=== PATIENT | female | born 1980 | race Caucasian/White ===

== ENCOUNTER → 2016-11-05 | Outpatient (CLI) | payer OTHER ==
--- NOTE | 2016-11-05 13:36 | DI ---
US PELVIC-TRANSVAGINAL,11/05/2016 7:54 AM: Clinical History: Pre-and menstrual disorder disorder. Previous Exam: March 25, 2012 Findings: Multiple transvaginal grayscale and color Doppler sonographic images are obtained through the pelvis, and demonstrate a normal-appearing uterus measuring 7.9 x 4.0 x 4.6 cm with an endometrial stripe me asuring 8 mm. There is a small 9 mm fibroid within the posterior myometrium. The right ovary measures 4.8 x 2.5 x 4.9 cm with normal Doppler flow and a few maturing follicles. The left ovary measures 2.9 x 2.2 x 2.6 cm with normal Doppler flow. There is a trace amount of free fluid within the deep pelvis. Impression: 1. Trace amount of fluid within the deep pelvis. 2. 9 mm myometrial fibroid within the posterior myometrium.
== END ==
LOC: US 07:51
PROVIDERS: ATTEND Nurse Practitioner Family
DX: F32.81 Premenstrual dysphoric disorder (principal); D25.9 Leiomyoma of uterus, unspecified
CPT/HCPCS: 76830

== ENCOUNTER 2018-03-09 14:17 | Inpatient (IN) ==
[2018-03-09] MEDS ORDERED: Lidocaine 1% 10 MG/ML - 20 ML VIAL SUBCUT PRN (18:19)
[2018-03-09] MEDS ORDERED: FAMOTIDINE 20 MG/2 ML VIAL IVP PRN ×2 (18:19)
[2018-03-09] MEDS ORDERED: OXYTOCIN 10 UNIT/1 ML IM PRN (18:19)
[2018-03-09] MEDS ORDERED: CefOXitin Inj 2 GM in Sodium Chloride 0.9% 100 ML IV PRN (18:19)
[2018-03-09] MEDS ORDERED: LIDOCAINE HCL 2 % 10 ML JELLY URO-JECT TOPICAL PRN (18:19)
[2018-03-09] MEDS ORDERED: CITRIC ACID/SODIUM CITRATE 30 ML CUP PO PRN (18:19)
[2018-03-09] MEDS ORDERED: LIDOCAINE W/ SODIUM BICARB 0.5 ML SYR SUBD PRN (18:19)
[2018-03-09] MEDS ORDERED: ePHEDrine Inj 50 MG/ML AMP IVP PRN (18:19)
[2018-03-09] MEDS ORDERED: Metoclopramide Inj 10 MG/2 ML VIAL IV PRN (18:19)
[2018-03-09] MEDS ORDERED: diphenhydrAMINE 50 MG/1 ML VIAL IVP PRN (18:19)
[2018-03-09] MEDS ORDERED: Naloxone Inj 0.01 MG in Sodium Chloride 0.9% vial 1 ML IVP PRN (18:19)
[2018-03-09] MEDS ORDERED: ONDANSETRON 4 MG/2 ML VIAL IVP PRN (18:19)
[2018-03-09] MEDS ORDERED: NALOXONE 0.4 MG/1 ML VIAL IVP PRN (18:19)
[2018-03-09] MEDS ORDERED: Carboprost Inj 250 MCG/ML AMP IM PRN (18:19)
[2018-03-09] MEDS ORDERED: CALCIUM CARBONATE 500 MG (TUMS) CHEWABLE TABLET PO PRN (18:19)
[2018-03-09] MEDS ORDERED: Phenylephrine Inj 50 MCG in Sodium Chloride 0.9% vial 0.5 ML IVP PRN (18:19)
[2018-03-09] MEDS ORDERED: Nalbuphine Inj 20 MG/ML Ampule IVP PRN (18:19)
[2018-03-09] MEDS ORDERED: fentaNYL Inj 100 MCG/2 ML VIAL IV PRN (18:19)
[2018-03-09] MEDS ORDERED: MISOPROSTOL 200 MCG TABLET RECTAL PRN (18:19)
[2018-03-09] MEDS ORDERED: METHYLERGONOVINE MALEATE 0.2 MG/1 ML VIAL IM PRN (18:19)
[2018-03-09] MEDS ORDERED: TERBUTALINE SULFATE 1 MG/1 ML SDV SUBCUT PRN (18:19)
[2018-03-09] MEDS ORDERED: Oxytocin 20 Units + LR 20 UNIT/1,000 ML BAG IV SCH ×3 (18:30→20:45)
[2018-03-09] MEDS ORDERED: Aztreonam Inj 2 GM in Sodium Chloride 0.9% 100 ML IV PRN (18:38)
[2018-03-09] MEDS ORDERED: Clindamycin 900mg (Premix) 900 MG/50 ML BAG IV PRN (18:39)
[2018-03-09 19:04] LABS: Hematocrit [HCT] 39.5 % (37.0-47.0); Hemoglobin [HGB] 13.2 g/dL (12.0-16.0); MEAN CORPUSCULAR HEMOGLOBIN 27.6 PG (27-31); MEAN CORPUSCULAR HGB CONC 33.4 g/dL (33-37); MEAN CORPUSCULAR VOLUME 82.6 FL (81-99); MEAN PLATELET VOLUME 11.4 FL (7.4-12.2); RED BLOOD COUNT 4.78 10^6/uL (4.20-5.40)
[2018-03-09] MEDS: Lactated Ringers-OB Dept 1,000 ML PRIMARY IV SCH (19:15)
--- NOTE | 2018-03-09 20:15 | OB.PROGRES ---
Interval History: The patient is a 37-year-old at 38-6/7 weeks today who presents for cervical ripening and induction of labor secondary to advanced maternal age. Please see the initial history when I first saw her at the beginning of her . This has been significant for edema of and a very painful hemorrhoid but otherwise GBS negative and 24 urine for total protein less than 300 mg. Normal blood pressures. Normal Glucola. The patient has advanced maternal age and therefore the patient has undergone antepartum testing for several weeks and the heart tones have been reactive. The patient states that she has had intermittent contractions for the past week. In labor and delivery this evening the patient was noted to have irregular contractions and some were uncomfortable with 3 out of 10 pain. No leakage of fluid. No bleeding. Positive movement. The patient is a 37-year-old at 8-6/7 weeks today with an RUFINO of 2017 by LMP and by early ultrasound. Patient presents today with history of infertility and saw an KAYLAH and was prescribed letrozole and hCG and conceived the first attempt. The patient last had an ultrasound on 07/25/2017 which showed a 6-2/7 weeks IUP with cardiac activity. The patient presents today for a new OB appointment to confirm . The patient continues to have nausea but no emesis. The patient has not had bleeding. The patient does have some fatigue. The patient is taking micronized progesterone twice a day and taking a baby aspirin-81 mg-daily. The patient does have occasional reflux-GERD. Past medical history significant for sinusitis, GERD, seasonal allergies Past surgical history significant for wisdom teeth extraction, shoulder surgery , and a D&C in 2009 for a miscarriage. Missed AB. The patient is allergic to penicillin and to bees. BUSINESS DEVELOPMENT DIRECTOR history with menarche age 13. No abnormal Pap smear history no STI history. OB history with 1 miscarriage with a pole visualized but no cardiac activity around 6+ weeks in 2009. Patient did have a D&C which was uncomplicated.The patient also has a history of oligomenorrhea and dysmenorrhea. Past OB history as above. Objective - Cervical Exam Cervical Exam: 2/60/-2 cephalic and soft. Membranes swept gently. No blood on my exam glove with sweeping membranes. [place]: Irregular contractions but more than 3 in 10 minutes usually. Heart Rate Interpretation Category: Category I - Labs CBC and BMP: 03/09/18 18:19 - Vital Signs Last Taken Vital Signs: Vital Signs - Last Taken Temperature 97.9 F 03/09/18 18:21 Pulse Rate 86 03/09/18 19:00 Respiratory Rate 20 03/09/18 18:21 Blood Pressure 127/87 03/09/18 19:25 Pulse Ox 97 03/09/18 18:21 - Additional Details Additional Details: Lungs clear to auscultation Heart regular rate and rhythm Abdomen is gravid, soft and nontender. No guarding or rebound. Cephalic by Ronald's Assessment and Plan - Assessment / Plan Additional Assessment/Plan Details: Assessment: IUP 38-6/7 weeks with advanced maternal age. Patient admitted this evening with irregular contractions that are often more than 3 in 10 minutes. Positive movement. Category 1 heart rate tracing. GBS negative. Plan: Secondary to the latent labor and irregular contractions but often more than 3 in 10 minutes, I cannot use Cytotec for cervical ripening. Low-dose Pitocin will be used. The patient and I did discuss epidural and the patient is open to it but may not have one the pending upon how she does. We did discuss that not all labors and with a vaginal delivery. About 20-30% of patients to have a section. The risks, benefits, alternatives and indication of a vaginal delivery and were discussed with the patient. Indications for a including arrest of dilation, arrest of descent, nonreassuring status and other reasons such as heavy bleeding may necessitate a section. Patient expressed understanding. Will proceed with cervical ripening.
[2018-03-10] MEDS: Lactated Ringers-OB Dept 1,000 ML PRIMARY IV SCH ×2 (02:59→11:37)
--- NOTE | 2018-03-10 08:31 | OB.PROGRES ---
Date of Service: 03/10/18 Interval History: The patient states that she did contract overnight and could feel them although they were not very painful. She did not sleep very much at all. She did not want to take the Ambien. This morning, the patient is doing okay. She has noticed a little bit of dark blood vaginally. No gush of fluid. Baby is moving well. She did take a shower this morning and she is ready for the cervical ripening to continue. Objective - Cervical Exam Cervical Exam: 260/-2 cephalic. There is some dark blood on my gloved digit. Membranes were swept gently. No bright red blood. [place]: Irregular contractions but sometimes more than 3 in 10 minutes. The patient's contractions had decreased to about every 8 minutes but then the patient wanted to shower before Cytotec administration and her contractions increased. Heart Rate Interpretation Category: Category I - Labs CBC and BMP: 03/09/18 18:19 - Vital Signs Last Taken Vital Signs: Vital Signs - Last Taken Temperature 98.3 F 03/10/18 06:05 Pulse Rate 88 03/10/18 06:05 Respiratory Rate 18 03/10/18 06:05 Blood Pressure 131/85 03/10/18 06:05 Pulse Ox 96 03/10/18 06:42 Assessment and Plan - Assessment / Plan Additional Assessment/Plan Details: Assessment: IUP 39 weeks with advanced maternal age. Patient admitted for cervical ripening and induction of labor The patient received low-dose Pitocin overnight-1 milliunit and the contractions were every 2 minutes initially but then this morning the contractions started to space out. I talked with the nurse at 0537 hours this morning and the Pitocin was stopped. At 0653 hrs., the contractions were spaced out to every 8 minutes and Cytotec 25 g per vagina was requested by me. The patient wanted to take a shower prior to the Cytotec administration and while the patient was showering the patient's contractions increased in frequency. Currently, they appear to be decreasing in frequency. The patient' s cervix is unchanged from last evening's exam. Plan: Currently, we will evaluate if the contractions decreased in frequency and become more regular. If this occurs, Cytotec 25 g will be administered for cervical ripening. If the contractions do not decrease in frequency then I will add Pitocin and increase it to get regular contractions and use the Pitocin as a cervical ripening agent. The patient's cervix is soft and hopefully will ripen. I encouraged the patient to try to get some sleep this morning. The patient expressed understanding with the plan.
[2018-03-10] MEDS: Misoprostol Tab 100 MCG TAB VAGINAL ONE (09:09)
[2018-03-10] MEDS: Oxytocin 20 Units + LR 20 UNIT/1,000 ML BAG IV SCH (17:01)
--- NOTE | 2018-03-10 17:49 | OB.PROGRES ---
Interval History: The patient has walked this afternoon and I have spoken with her several times. The patient is tired and would like to rest. Objective - Cervical Exam Cervical Exam: 60/-2 cephalic. Nurse's exam [place]: Currently irregular contraction. Pitocin was started at 2 milliunits for cervical ripening Heart Rate Interpretation Category: Category I - Labs CBC and BMP: 03/09/18 18:19 - Vital Signs Last Taken Vital Signs: Vital Signs - Last Taken Temperature 98.2 F 03/10/18 16:43 Pulse Rate 80 03/10/18 17:31 Respiratory Rate 19 03/10/18 16:43 Blood Pressure 107/70 03/10/18 17:31 Pulse Ox 98 03/10/18 17:05 Assessment and Plan - Assessment / Plan Additional Assessment/Plan Details: Assessment: IUP 39 weeks with advanced maternal age. Patient had 1 dose of Cytotec and did contract and did ripen her cervix somewhat. Currently, low-dose Pitocin. [place]: The plan is to continue low-dose Pitocin until 2000 hrs. Stop the Pitocin. If the patient's contractions decreased then the patient will be a small meal then rest and then at 4:00 in the morning the patient will either have Pitocin started again or a Cytotec for cervical ripening. This will depend upon the cervix exam. I discussed this plan with the patient and the nurses and the patient states understanding. She would like to sleep.
[2018-03-10] MEDS ORDERED: HYDROXYZINE PAMOATE 25 MG CAPSULE PO ONE (20:27)
--- NOTE | 2018-03-10 20:57 | OB.PROGRES ---
Interval History: The patient states she is doing well although she is quite tired. She would like to take a break and eats something and then sleep some. Baby is moving. No gush of fluid. No bleeding. Objective - Cervical Exam Cervical Exam: just 3cm/70/-2 cephalic. Membranes gently swept. Some dark blood on my glove. The internal cervical OS still has a tight ring. [place]: Contractions every 2-3 minutes on 4 milliunits of Pitocin. Heart Rate Interpretation Category: Category I - Labs CBC and BMP: 03/09/18 18:19 - Vital Signs Last Taken Vital Signs: Vital Signs - Last Taken Temperature 98.2 F 03/10/18 16:43 Pulse Rate 89 03/10/18 19:30 Respiratory Rate 18 03/10/18 19:30 Blood Pressure 120/80 03/10/18 19:30 Pulse Ox 98 03/10/18 19:30 Assessment and Plan - Assessment / Plan Additional Assessment/Plan Details: Assessment: IUP 39 weeks with advanced maternal age. Patient admitted for cervical ripening and induction of labor. There has been a slight amount of cervical ripening with 1 dose of Cytotec and then Pitocin. Category 1 heart rate tracing. Plan: The patient and I discussed stopping the Pitocin and if the contractions decreased in frequency then the patient could eat a light meal and then we could have her sleep. I have prescribed hydroxyzine or Atarax 25 mg by mouth to take to help her sleep. We did discuss that this may cause grogginess. If the contractions did decrease in frequency and the patient's IV to be hep- locked and we can take her off the monitor for a couple hours to allow her to sleep since the baby is had a category 1 heart rate tracing and blood pressures are normal. If the patient's contractions decreased in frequency to less then 3 in 10 minutes regularly then I would have the patient go back on the monitor at about 0330 hrs. in the morning and then Cytotec 25 g would be administered at 0400 hrs. for cervical ripening. If the patient's contractions are 3 contractions in 10 minutes then I would add some Pitocin to augment the contractions for continued cervical ripening. We then spoke about checking the patient's cervix tomorrow morning to determine cervical change and possible AROM with IUPC some time in the morning with continued Pitocin. Another option would be to continue without AROM to determine how she does. At the patient's cervix does not change significantly, we also spoke about discharging the patient home if everything looks well and have the patient return in several days for induction of labor. It would depend upon the patient 's wishes. If the patient's contractions continue without the Pitocin tonight, and they are regular, I would not suggest that the patient ate but we could still have her sleep with the hydroxyzine. The patient expressed understanding with the above plan. Currently, the patient will have the Pitocin stopped. If the contractions decreased in frequency and the patient will eat a small meal and then soak in the tub and then take a short walk and then go to bed. Short external monitoring and then IV hep-locked and monitor will be held for a couple hours so that the patient can sleep. If the patient's contractions are not frequent in the morning then the patient will have Cytotec 25 g per vagina. If the contractions are more frequent, Pitocin augmentation.
[2018-03-10] MEDS: BUTORPHANOL TARTRATE 2 MG/1 ML VIAL IVP PRN ×2 (23:00→23:15)
[2018-03-11] MEDS: BUTORPHANOL TARTRATE 2 MG/1 ML VIAL IVP PRN (01:56)
[2018-03-11] MEDS: Lactated Ringers-OB Dept 1,000 ML PRIMARY IV SCH ×3 (02:17→11:49)
[2018-03-11] MEDS ORDERED: Misoprostol Tab 100 MCG TAB VAGINAL ONE (04:00)
[2018-03-11] MEDS: Misoprostol Tab 100 MCG TAB VAGINAL ONE (04:22)
[2018-03-11] MEDS ORDERED: Misoprostol Tab 100 MCG TAB ONE (04:23)
--- NOTE | 2018-03-11 08:43 | OB.PROGRES ---
Interval History: The patient states that she slept last night. She is still little groggy from the hydroxyzine or Atarax. She did get a little last night too. Objective - Cervical Exam Cervical Exam: Tight 3 cm/75/-2 and I could palpate a slight bulging bag with a contraction. Membranes swept gently. [place]: Agent did receive Cytotec at 0415 hrs. as morning. The patient is kylie every 3-4 minutes. Heart Rate Interpretation Category: Category I - Labs CBC and BMP: 03/09/18 18:19 - Vital Signs Last Taken Vital Signs: Vital Signs - Last Taken Temperature 97.9 F 03/11/18 08:10 Pulse Rate 70 03/11/18 08:10 Respiratory Rate 18 03/11/18 06:00 Blood Pressure 121/84 03/11/18 08:10 Pulse Ox 100 03/11/18 08:10 Assessment and Plan - Assessment / Plan Additional Assessment/Plan Details: Assessment: 39-1 week doing well Slight cervical change -ripening Patient did receive Cytotec 25 g as morning of 0415 hrs. GBS negative Plan: Pitocin started at 1 milliunit Consider AROM later this morning. Patient and I will discuss this more.
[2018-03-11] MEDS: Oxytocin 20 Units + LR 20 UNIT/1,000 ML BAG IV SCH (08:50)
[2018-03-11] MEDS ORDERED: Fent/Bupiv 2mcg/0.0625% Epid 250 ML ONE (11:44)
--- NOTE | 2018-03-11 12:14 | OB.PROGRES ---
Interval History: Patient requested an epidural secondary to pain. The epidural has helped. Objective - Cervical Exam Cervical Exam: 375/-2. AROM with clear fluid. IUPC attempted to be placed the patient got a little lightheaded after AROM and her blood pressure was 95/ 60. Patient was sat up. IUPC could not be easily placed with the patient sitting. It kept coiling up. External monitor will be used an IUPC will be attempted again. [place]: Contractions every 3 minutes. This was on 5 milliunits of Pitocin. Once AROM, the Pitocin was decreased at 3 milliunits. Heart Rate Interpretation Category: Category I - Labs CBC and BMP: 03/09/18 18:19 - Vital Signs Last Taken Vital Signs: Vital Signs - Last Taken Temperature 97.9 F 03/11/18 08:10 Pulse Rate 94 03/11/18 09:37 Respiratory Rate 18 03/11/18 06:00 Blood Pressure 124/104 03/11/18 09:37 Pulse Ox 99 03/11/18 08:52 Assessment and Plan - Assessment / Plan Additional Assessment/Plan Details: IUP 39-06/01 with AROM with clear fluid. Pitocin was decreased at 3 milliunits. I will attempt to place another IUPC after the patient starts feeling better. The patient is currently sitting and feeling better. Blood pressures will be observed. The patient may need ephedrine but currently position change may help her blood pressure. The patient states she is feeling somewhat better now. With IUPC placement there was no evidence of uterine perforation. I did not force the IUPC. I believe that the patient's lightheadedness is secondary to the epidural and then AROM and feeling the warm fluid drain.
--- NOTE | 2018-03-11 12:24 | CRNA.PROCE ---
Central Neuraxis Block Placemt - - Safety Measures: Time Out Taken, Site Verified - - Type of Block: Epidural Reason for Block: Analgesia Moniters Used During Block: SPO2, NIBP Positioning: Sitting Skin Prep Used: Betadine Draped: Yes Skin Infiltration - Enter Amount Used in Comment Field: 1% Xylocaine (mL): Yes ( wheal) Introducer User: 18 Gauge Hustead (Banner PRACHI to saline first pass L3-4) Local Anesthetic - Enter Amount Used in Comment Field: 5.0 % Xylocaine with Dextrose (ml): Yes (5ml test dose neg) Number of Centimeters Catheter Threaded: 4 Bioclusive Dressing Applied: Yes Anesthesia Time - Other Weight: 94.007 kg Height: 5 ft 8 in Body Mass Index (BMI): 31.5
--- NOTE | 2018-03-11 12:27 | CRNA.PROGR ---
Anesthesia Time - Procedure/Recovery Time Start Date: 03/11/18 Anesthesia : Time In: 11:15 - Other Weight: 94.007 kg Height: 5 ft 8 in Body Mass Index (BMI): 31.5 Physical Status: P2 Obstetrics: Planned vaginal delivery w/ neuraxial labor anesthesia/analog
[2018-03-11] MEDS ORDERED: fentaNYL 2 MCG/BUPIVACAINE 0.0625%/NS 0.9% 250 ML BAG EPIDURAL SCH (12:30)
--- NOTE | 2018-03-11 13:38 | OB.PROGRES ---
Interval History: The patient feels much better now. No nausea. Epidural working well. Patient can feel the pressure of a contraction that only minimal pain if that. Objective - Cervical Exam Cervical Exam: 5/c/-1 cephalic. IUPC placed without issue. Placed at about 5: 00 on a clock face. Easily introduced. Heart Rate Interpretation Category: Category I - Labs CBC and BMP: 03/09/18 18:19 - Vital Signs Last Taken Vital Signs: Vital Signs - Last Taken Temperature 97.9 F 03/11/18 08:10 Pulse Rate 94 03/11/18 09:37 Respiratory Rate 18 03/11/18 06:00 Blood Pressure 124/104 03/11/18 09:37 Pulse Ox 100 03/11/18 11:00 Assessment and Plan - Assessment / Plan Additional Assessment/Plan Details: Assessment: IUP 39-1/7 week with induction of labor for dance maternal age. Patient doing well. Patient's cervix didn't change. IUPC was placed secondary to being able to monitor [place] units with the Pitocin. Currently Pitocin is at 5 milliunits. Plan continue to observe closely. 200 [place] units is my goal. Observe for cervical change.
[2018-03-11] MEDS ORDERED: LIDOCAINE W/ SODIUM BICARB 0.5 ML SYR ONE (16:55)
--- NOTE | 2018-03-11 17:05 | OB.PROGRES ---
Interval History: Patient has been comfortable with her epidural. Her IV stopped working and the nurses are trying to find the vein for an IV site. This has been hurting the patient but her labor pain is controlled by the epidural. Objective - Cervical Exam Cervical Exam: Small anterior lip which appears to be easily reducible/c/0 Heart Rate Interpretation Category: Category I - Labs CBC and BMP: 03/09/18 18:19 - Vital Signs Last Taken Vital Signs: Vital Signs - Last Taken Temperature 97.4 F 03/11/18 14:30 Pulse Rate 79 03/11/18 16:00 Respiratory Rate 18 03/11/18 16:00 Blood Pressure 117/69 03/11/18 16:00 Pulse Ox 98 03/11/18 16:00 Assessment and Plan - Assessment / Plan Additional Assessment/Plan Details: Assessment: IUP 39 and one sevenths weeks with the cervix essentially complete since the anterior lip produces. The nurses did find an IV site and anesthesia is looking for 1 more currently. Plan: The patient will start the second stage of labor with pushing as soon as her IV is in. The anterior lip will be attempted to be reduced with pushing. Continue to observe closely
--- NOTE | 2018-03-11 18:36 | OB.PROGRES ---
Interval History: The patient has been pushing since about 1720 hrs. The patient is comfortable with her epidural. Objective - Cervical Exam Cervical Exam: c/c/0. LOP by exam Heart Rate Interpretation Category: Category II (Intermittent mild tachycardia.) - Labs CBC and BMP: 03/09/18 18:19 - Vital Signs Last Taken Vital Signs: Vital Signs - Last Taken Temperature 97.6 F 03/11/18 16:00 Pulse Rate 95 03/11/18 17:12 Respiratory Rate 18 03/11/18 17:00 Blood Pressure 94/5 03/11/18 17:12 Pulse Ox 98 03/11/18 16:00 Assessment and Plan - Assessment / Plan Additional Assessment/Plan Details: Currently, the patient's baby's head is in the LOP presentation. Patient has been pushing for a little over an hour. Patient has good expulsive effort but then the head ascends again to the 0 to - 1 station. The nurses trying some position changes to try to allow for head rotation to an OA presentation. Continue to observe closely Continue to observe the intermittent mild tachycardia.
--- NOTE | 2018-03-11 21:05 | OB.DEL.SUM ---
Delivery Note Delivery Summary: Delivery note: Patient pushed for over 2 hours. It was clear that the baby's head would not easily fit through the patient's perineum which was tight. By palpating the head, it felt as though the baby may be in the OP presentation. I injected 1% lidocaine at the posterior fourchette and then I cut a medial lateral episiotomy on the patient's right side. The patient then continued to push for another 15 or 20 minutes and then deliver the baby's head in the OP and then the baby righted herself to the LOP presentation and the anterior shoulder delivered. There was a nuchal cord 2 which was reduced on the perineum. The mouth and nose were bulb suctioned. The baby's posterior shoulder was then delivered and then the baby was delivered. I called suction the baby's mouth and nose. I allowed for delayed cord clamping of about 35 seconds. The cord was then clamped and cut. The baby was placed on the patient's abdomen and chest. I then collected a section of cord for cord gas. I then collected cord like. I then examined the patient's perineum and there appeared to be the medial lateral episiotomy and no other lacerations. I did a rectal exam and the rectum and sphincter was intact. Gloves were changed. I then asked the nurse to massage the fundus and then I had the patient gently push while tugging on the umbilical cord and the placenta easily delivered. Minimal trailing membranes. Pitocin was started. I then cleaned the patient's medial lateral episiotomy. I decided to reinforce the sphincter with 0 Vicryl suture and 2 [id number] sutures. Rectal exam was then completed again and there was no suture noted. I then used 3-0 Vicryl Rapide suture starting at the apex of the laceration in the vagina and working down to the hymenal ring. There was a laceration also extension on the left side of the episiotomy and I closed this with 3-0 Vicryl Rapide. I then used a 3-0 Vicryl Rapide to dive down and then completed a crown stitch and tied this off. I then closed more space from perineum aspect with a 3- 0 Vicryl Rapide. I then used a 3-0 Vicryl repeat on an SH needle to close the perineum and then ran the peritoneum from inferior aspect to the superior aspect of the perineum and then brought the suture back into the vaginal aspect and then with one more suture and the vagina tied the suture. The perineum was minimally and although study showed that this will heal, I closed the perineum with 2 interrupted 3-0 Vicryl Rapide sutures. The vaginal repair was examined and then irrigated. A rectal exam was completed one more time and there was no fistula noted nor no suture noted. The placenta was examined and it appeared intact. Sponge lap and needle counts were correct 2. Findings were a female infant with Apgars 4, 8, 10 ABG showed a pH of 7.3-4, PCO2 of 38.7, HCO3 of 20.1, base excess of -6 EBL was 350 mL. The patient would recover in her room. The baby would recover with her.
[2018-03-11] MEDS ORDERED: ONDANSETRON 4 MG/2 ML VIAL IVP PRN (21:34)
[2018-03-11] MEDS ORDERED: Nalbuphine Inj 20 MG/ML Ampule IVP PRN (21:34)
[2018-03-11] MEDS ORDERED: Oxytocin 20 Units + LR 20 UNIT/1,000 ML BAG IV SCH (21:34)
[2018-03-11] MEDS ORDERED: diphenhydrAMINE 25 MG CAPSULE PO PRN (21:34)
[2018-03-11] MEDS ORDERED: CALCIUM CARBONATE 500 MG (TUMS) CHEWABLE TABLET PO PRN (21:34)
[2018-03-11] MEDS ORDERED: Ondansetron ODT Tab 4 MG TAB PO PRN (21:34)
[2018-03-11] MEDS ORDERED: ACETAMINOPHEN 325 MG TABLET PO PRN (21:34)
[2018-03-11] MEDS ORDERED: diphenhydrAMINE 50 MG/1 ML VIAL IVP PRN (21:34)
[2018-03-11] MEDS ORDERED: LANOLIN HPA 40 GM TUBE TOPICAL PRN (21:34)
[2018-03-11] MEDS ORDERED: LIDOCAINE HCL 2 % 10 ML JELLY URO-JECT TOPICAL PRN (21:34)
[2018-03-11] MEDS ORDERED: DIPH,PERTUSS,TET(ADACEL) VAC/PF 0.5 ML (Tdap) IM ONE (21:34)
[2018-03-11] MEDS ORDERED: BENZOCAINE/MENTHOL SPRAY 56 GM BOTTLE TOPICAL PRN (21:34)
[2018-03-11] MEDS ORDERED: GLYCERIN/WITCH HAZEL 1 BOX TOPICAL PRN (21:34)
[2018-03-11] MEDS: KETOROLAC 15 MG/1 ML VIAL IVP PRN (21:45)
[2018-03-12] MEDS: HYDROcodone-APAP 5 MG -325 MG TABLET PO PRN ×5 (03:03→20:56)
[2018-03-12] MEDS: KETOROLAC 15 MG/1 ML VIAL IVP PRN ×3 (03:38→15:39)
[2018-03-12 04:56] LABS: Hematocrit [HCT] 31.8 % (37.0-47.0); Hemoglobin [HGB] 10.1 g/dL (12.0-16.0); MEAN CORPUSCULAR HEMOGLOBIN 26.7 PG (27-31); MEAN CORPUSCULAR HGB CONC 31.8 g/dL (33-37); MEAN CORPUSCULAR VOLUME 84.1 FL (81-99); MEAN PLATELET VOLUME 11.8 FL (7.4-12.2); RED BLOOD COUNT 3.78 10^6/uL (4.20-5.40)
[2018-03-12] MEDS: DOCUSATE 100 MG CAPSULE PO SCH ×2 (09:43→20:56)
[2018-03-12] MEDS: Prenatal Multivitamin Tab 1 TAB TAB PO SCH (09:43)
--- NOTE | 2018-03-12 09:54 | OB.PROGRES ---
Subjective Post Day: 1 Pain Management: IV Toradol [place] Catheter: No Flatus: Yes Lochia Color: Serosa/Brown Scant < 10 ml Diet: Regular [place] Feeding Method: Exculsively Ambulating: Yes Concerns / Additional Information: The patient states that she is doing well although she is still tired. Some perineal discomfort but no significant pain. Toradol has been helping. Objective - General General Appearance: POSITIVE: No Acute Distress, Cooperative - Cardiovacular Cardiovascular Exam: POSITIVE: RRR Edema: +1 Pedal Edema Extremities: Negative Primo's - Bilaterally - Respiratory Respiratory Exam: POSITIVE: Clear to Auscultation - Bilaterally - Abdomen Other Abdominal Exam Details: Abdomen is slightly distended. No guarding or rebound. - Fundus/Lochia/Perineum Other Exam Details: The patient was sitting at the time holding her baby so I did not palpate her uterine fundus. The nurse has been doing this. Assesstment / Plan Assessment / Plan: Assessment: day #1 status post spontaneous vaginal delivery over a medial lateral episiotomy. The baby delivered in the OP presentation. Patient's H&H is 10 and 31. And platelets are 188,000. Patient is doing well. She still is tired and does need some sleep most likely. Plan: Continue to observe the patient today Hopefully, the patient will be able to get some sleep today and then tonight. Continue with breast-feeding assistance from the nurse's and care from the nurses. Since the patient delivered last evening, anticipate discharge home tomorrow morning.
[2018-03-12] MEDS ORDERED: MMR VACCINE 12500 UNIT/0.5 ML SUBCUT ONE (10:42)
[2018-03-12] MEDS: POLYETHYLENE GLYCOL 3350 17 GM POWDER PO SCH (13:41)
[2018-03-13] MEDS: HYDROcodone-APAP 5 MG -325 MG TABLET PO PRN ×4 (03:11→23:27)
--- NOTE | 2018-03-13 07:31 | OB.PROGRES ---
Subjective Post Day: 2 Pain Management: PO Castro Catheter: No Flatus: Yes Lochia Color: Serosa/Brown Scant < 10 ml Diet: Regular Feeding Method: / Bottle Ambulating: Yes Concerns / Additional Information: The patient is exhausted and frustrated because breast-feeding is not going well. The water resource consultant will come in to help today hopefully. The patient did get some sleep but still is tired and frustrated. Objective - General General Appearance: POSITIVE: No Acute Distress, Cooperative, Average Body Hiatus - Cardiovacular Cardiovascular Exam: POSITIVE: RRR Edema: +1 Pedal Edema Extremities: Negative Primo's - Bilaterally - Respiratory Respiratory Exam: POSITIVE: Clear to Auscultation - Bilaterally, Breathing Non Labored - Abdomen Bowel Sounds: Present Other Abdominal Exam Details: Abdomen soft and nontender without guarding or rebound - Fundus/Lochia/Perineum Uterus Consistency: Firm Assesstment / Plan Assessment / Plan: Assessment: day #2 status post spontaneous vaginal delivery of a 7 lbs. 14 oz. infant girl in the OP presentation over a medial lateral episiotomy. Patient states that the breast-feeding is not going well. The patient's milk is not coming yet. The patient just delivered 36 hours ago. Patient's H&H shows mild anemia. Patient states that she does not feel depressed but significantly frustrated since the breast-feeding is not going well and is not sure why. The baby was also under bili lights last night. Plan: Currently, I would like the patient to go home tomorrow so that she can have breast-feeding help with the water resource consultant but also the nurse's. However , I am not sure about the patient's insurance and whether or not they would allow the patient to stay until day #3. The patient was admitted earlier this week for cervical ripening and the cervical ripening went well but was slow and the patient did not deliver until 2 days after admission. Discharge medications Will be: ibuprofen 800 mg 1 tablet by mouth 3 times a day for 5 days with food or milk then 3 times a day as needed Ferrous sulfate 3 and 25 mg 1 tablet by mouth daily-patient has this medication at home Colace 100 mg capsule 1 capsule by mouth daily to twice a day when necessary constipation-patient has this medication at home Hydrocodone/Tylenol 1 tablet by mouth every 6 hours when necessary pain from her medial lateral episiotomy site. Patient has 15 tablets still at home from a prescription 2+ weeks ago for a significantly painful hemorrhoid. The patient states that currently she does not need a new prescription. The patient should continue a multivitamin daily. Sits baths at home twice a day at least for 10 minutes at a time. This should be continued for 4-6 weeks at least. Lori-care will be discussed by the nurse and I have discussed it. The patient' s episiotomy site should be blotted dry were allowed to air dry. A criminal justice department chair on cool or warm may also be used. depression symptoms and signs will be discussed by the nurse and myself. If the patient or a family member believes that the patient is developing depression, my office should be contacted or if it is at night or weekends; the patient should go to the emergency room. The patient should return in 1 week for a blood pressure check. The patient may make a nurse visit appointment for this. I will request that the patient make a 6 week appointment also.
--- NOTE | 2018-03-13 07:39 | DCSUMMARY ---
Hospitalization Summary Admit Date: 03/09/18 Primary Diagnosis:: IUP 39 weeks with advanced maternal age Primary Surgery and Date: 03/11/2018. Spontaneous vaginal delivery over a medial lateral episiotomy. Repair of episiotomy Delivery Type: Vaginal Hospital Course: This patient was admitted on 03/09/2018. The patient underwent cervical ripening with both Cytotec and Pitocin intermittently. On 03/11/2018 the patient's cervix was ripened and the patient's contractions were augmented with Pitocin. AROM with clear fluid. Intrauterine pressure catheter placed. The patient's cervix continued to progress and dilate. The patient then had about a 2-1/2 hour second stage of labor and the patient delivered a female infant over a medial lateral episiotomy in the OP presentation. The baby's weight was 7 lbs. 14 oz. Apgars were 4/8/and 10. Please see my delivery note. The episiotomy was repaired. The patient's course has been complicated with breast-feeding not going well and the baby was under bili lights. Also, the baby's weight was down 5%. A request for the patient to stay until day #30 be made if the patient's insurance does not readily allow for it. This will be for more breast -feeding teaching and patient gaining experience with the breast-feeding. Additionally, the patient is exhausted from the 3 days of cervical ripening and labor and is still fairly uncomfortable from the medial lateral episiotomy. / Postop Complications: Please see above [place] Complications: Please see above Exam - Vitals Vital Signs: Vital Signs Temperature 97.7 F Temperature Source Oral Pulse Rate [Apical] 76 Pulse Rate [Pulse Oximeter] 83 Pulse Rate 79 Respiratory Rate 18 Blood Pressure [Left Arm] 121/80 Blood Pressure [Right Arm] 105/57 Blood Pressure 132/68 Pulse Ox 99 Oxygen Delivery Method Room Air Height 5 ft 8 in Weight 207 lb 4 oz
[2018-03-13] MEDS: IBUPROFEN 800 MG TABLET PO PRN ×2 (09:30→19:27)
[2018-03-13] MEDS: DOCUSATE 100 MG CAPSULE PO SCH ×2 (09:30→21:59)
[2018-03-13] MEDS: Prenatal Multivitamin Tab 1 TAB TAB PO SCH (09:31)
[2018-03-13] MEDS: POLYETHYLENE GLYCOL 3350 17 GM POWDER PO SCH (09:32)
--- NOTE | 2018-03-13 15:07 | CRNA.PROGR ---
Anesthesia Note - Progress Notes Anesthesia Progress Note: Ambulating ad nelson. Discussed her anesthetic course for LUIZ and she has no questions or concerns.
[2018-03-14] MEDS: IBUPROFEN 800 MG TABLET PO PRN ×3 (04:09→19:10)
[2018-03-14 06:31] VITALS: TEMP 97.9
--- NOTE | 2018-03-14 09:27 | OB.PROGRES ---
Subjective Post Day: 3 Pain Management: PO Castro Catheter: No Flatus: Yes Lochia Color: Serosa/Brown Scant < 10 ml Diet: Regular [place] Feeding Method: / Bottle Ambulating: Yes Concerns / Additional Information: The patient learned a lot yesterday from the nurses and from the moving consultant. The patient has inverted nipples and has been using a shield to help with breast-feeding. Her right nipple is bleeding and very painful. She has been pumping from that side. She is feeding from the left side. The patient states that she is very concerned about the breast-feeding and may need to stay another day to get some more assistance here before she goes home to a 2-year-old and a 4-year-old who are ill and not having the help with teaching breast-feeding there. Otherwise, the patient is doing okay with decreased bleeding and no fever. Objective - General General Appearance: POSITIVE: Cooperative, Mild Distress (Secondary to breast- feeding only.) - Cardiovacular Cardiovascular Exam: POSITIVE: RRR Edema: +2 Pedal Edema (Bilaterally) Extremities: Negative Primo's - Bilaterally - Respiratory Respiratory Exam: POSITIVE: Clear to Auscultation - Bilaterally - Abdomen Other Abdominal Exam Details: Patient's abdomen was soft and nontender without guarding or rebound - Fundus/Lochia/Perineum Uterus Consistency: Firm (Patient currently breast-feeding and sitting. The patient's nurse stated that her uterus was firm and with appropriate tenderness. ) Assesstment / Plan Assessment / Plan: Assessment: day #3 status post spontaneous vaginal delivery over a mediolateral episiotomy and the baby in the direct OP presentation. The patient is having quite a difficult time with breast-feeding with her right nipple bleeding often and very painful. The patient also has inverted nipples and has been using the nipple shield to help with breast-feeding. It is my opinion that the patient could use another day here with the nurse's aiding in the breast-feeding teaching along with caring for her since she is having quite a difficult time with the breast-feeding and with bleeding from her right nipple. There is no sign of infection. Also, the patient's 2 and a [id number] in 4-1/2-year-old are both cyclic at home currently with an upper respiratory infection. Additionally, the patient does have some pain from her episiotomy site that she has been using hydrocodone for as needed as well as he ibuprofen 3 times a day. Plan: Currently, I will keep the patient here today and discharged home tomorrow unless there is a significant turnaround this afternoon. Continue nursing care and teaching of breast-feeding. Supplementation with formula as needed. Sits baths for 10 minutes at least 2 times today.
[2018-03-14] MEDS: POLYETHYLENE GLYCOL 3350 17 GM POWDER PO SCH (11:11)
[2018-03-14] MEDS: Prenatal Multivitamin Tab 1 TAB TAB PO SCH (11:11)
[2018-03-14] MEDS: DOCUSATE 100 MG CAPSULE PO SCH ×2 (11:11→21:57)
[2018-03-14 16:21] VITALS: BP 128/78; RESP 18; O2SAT 97
[2018-03-15] MEDS: IBUPROFEN 800 MG TABLET PO PRN ×2 (03:30→12:50)
[2018-03-15] MEDS: HYDROcodone-APAP 5 MG -325 MG TABLET PO PRN (03:31)
[2018-03-15] MEDS: Prenatal Multivitamin Tab 1 TAB TAB PO SCH (08:55)
[2018-03-15] MEDS: DOCUSATE 100 MG CAPSULE PO SCH (08:55)
[2018-03-15] MEDS: POLYETHYLENE GLYCOL 3350 17 GM POWDER PO SCH (08:55)
--- NOTE | 2018-03-15 09:49 | OB.PROGRES ---
Subjective Post Day: 4 Pain Management: PO Castro Catheter: No Flatus: Yes Lochia Color: Serosa/Brown Scant < 10 ml Diet: Regular [place] Feeding Method: / Bottle Ambulating: Yes Concerns / Additional Information: The patient states that her baby still is not latching on and sucking as well as she would like. She has been using the right and left breast for breast- feeding. Decreased bleeding from the right nipple. The patient is ambulating. The patient did do sitz baths yesterday and this helped her perineal discomfort significantly. The patient will be able to do sitz baths at home. Objective - General General Appearance: POSITIVE: No Acute Distress, Cooperative - Cardiovacular Cardiovascular Exam: POSITIVE: RRR Edema: +1 Pedal Edema Extremities: Negative Primo's - Bilaterally - Respiratory Respiratory Exam: POSITIVE: Clear to Auscultation - Bilaterally - Abdomen Other Abdominal Exam Details: Abdomen soft and nontender without guarding or rebound Assesstment / Plan Assessment / Plan: Assessment: day #4 status post with the baby in the OP presentation. Patient had medial lateral episiotomy. The patient is doing slightly better. I did speak with the patient about the symptoms and signs of depression. Currently, the patient states that she is frustrated secondary to the breast-feeding but does not feel as though she is depressed. The patient stated that she would inform me if there were symptoms. The patient will also have good support with her home for 6 weeks from work since he was able to take FMLA. Plan: The patient will be discharged home today. Please see the discharge plan.
[2018-03-15] MEDS ORDERED: Sertraline Tab 50 MG TAB PO SCH (11:45)
== END 2018-03-15 14:09 | disposition home or self-care (01) | DRG 807 ==
LOC: OBIP 18:19
PROVIDERS: ADMIT Obstetrics & Gynecology; ATTEND Obstetrics & Gynecology